=== PATIENT | male | born 1950 | race Caucasian/White ===

== ENCOUNTER 2019-02-02 08:04 | Day surgery (SDC) | payer BC ==
[~2019-02-02] VITALS: Ht 190.5 cm; Wt 105.0 kg
[~2019-02-02 08:04] MED LIST: BENA20 PO; IBUP600 PO; Levothyroxine200 MCG PO; Pravachol40 MG PO; Sudogest30 MG PO; TIZANIDINE HCL2 MG PO
== END 2019-02-02 09:28 | disposition home or self-care (01) ==
LOC: MHTC 08:04
DX: R55 Syncope and collapse (principal); I10 Essential (primary) hypertension; E78.5 Hyperlipidemia, unspecified; E03.9 Hypothyroidism, unspecified; R94.39 Abnormal result of other cardiovascular function study; Z79.899 Other long term (current) drug therapy; Z87.891 Personal history of nicotine dependence
CPT/HCPCS: 33285; C1764

== ENCOUNTER 2020-12-04 06:39 | Day surgery (SDC) | payer BC ==
[~2020-12-04] VITALS: Ht 190.5 cm; Wt 116.6 kg
[~2020-12-04 06:39] MED LIST changes: +Aspir 8181 MG PO; +FLUT.05NI; +MAGNESIUM OXID500 MG PO
[2020-12-04] MEDS ORDERED: PROSTATE HEALTH PO (07:43)
--- NOTE | 2020-12-04 10:46 | NUR ---
PT BROUGHT BACK TO RECOVERY ROOM IN RECLINER, REPORTS NOT FEELING WELL, NAUSEATED, PROVIDER CALLED, ORDER FOR ZOFRAN 4 MG IVP, NEOSYNEPHRINE 200 MG IVP, 1 LITER NORMAL SALINE. PT RECLINED WITH FEET ELEVATED, COLD RAG PLACED ON FOREHEAD. DR. AGRAWAL PRESENT TO BEDSIDE WITH US FOR FAST SCAN OF HEART. PT REPORTS FEELING BETTER AFTER RECIEVING MEDICATIONS. PRESENT AT BEDSIDE. DENIES PAIN. PLACED ON O2 AT 4L/NC SPO2 AT 94% BP 120/65 HR 60. REPORTS THAT NAUSEA HAS SUBSIDED. CALL LIGHT IN REACH. WILL CONTINUE TO MONITOR.
--- NOTE | 2020-12-04 11:00 | NUR ---
PROVIDER AT BEDSIDE TO DISCUSS PROCEDURE WITH PT AND FAMILY. VERBALIZED UNDERSTANDING. PHYSCIAL EVALUATION COMPLETED BY .
--- NOTE | 2020-12-04 11:39 | NUR ---
LIMITED ECHO BEING DONE AT BEDSIDE
--- NOTE | 2020-12-04 11:53 | NUR ---
ANCEF 2 GRAMS INFUSING PER MD ORDERS. PT RECLINING IN CHAIR. ATE 100 % OF MEAL TRAY. REMAINS PRESENT AT BEDSIDE. CALL LIGHT IN REACH. VSS.
--- NOTE | 2020-12-04 14:09 | NUR ---
PT PROVIDED WITH LUNCH TRAY, TOLERATES PO FLUIDS WITH NO DIFFICULTIES. REMAINS PRESENT IN ROOM. LEFT SIDE CHEST DRESSING REMAINS INTACT. PT DENIES PAIN OR SOB. PREVIOUSLY HAD CHEST XR AT BEDSIDE. ALSO PREVIOUSLY IN ROOM FOR FURTHER EVAL. NO ACUTE DISTRESS NOTED AT THIS TIME. PENDING ADMISSION TO PCU.
--- NOTE | 2020-12-04 14:43 | NUR ---
PT TRANSFERED TO PCU VIA W/C, ALL PERSONAL BELONGINGS SENT TO ROOM WITH PATIENT. NO ACUTE DISTRESS NOTED AT TIME OF TRANSFER. STEADY GAIT.
--- NOTE | 2020-12-04 15:40 | NUR ---
PT ARRIVED IN THE UNIT VIA WHEELCHAIR FROM [facility] POST PACER PLACEMENT. PT WAS ABLE TO STAND TRANSFER TO PCU BED ASSISTED. VITALS HRR SR AT 70'S, BP SYSTOLIC 120'S, SATS ABOVE 95% ON RA, AFEBRILE. PT DENIES CHEST PAIN/PRESSURE, SOB/, BUT HAS SLOGHT DISCOMFORT IN THE PACER SITE 2/10 TYLENOL GIVEN AT THIS TIME AWAITING TO TAKE EFFECT. PACER SITE DRESSING INTACT HAS SMALL AMOUNT OF BLOOD IN THE DRESSING NO REDNESS OR S/S OF INFECTION AROUND THE SITE, LEFT SLING APPLIED FOR IMMOBILIZATION PT IS EDUCATED ABOUT IMPORTANCE OF IMMOBILIZING LEFT ARM, PT VERBALIZED UNDERSTANDING. NO OTHER ISSUES AT THIS TIME, PT IS A SBA FOR TOILETING. ABLE TO MAKE NEEDS KNOWN, CALL LIGHTS IN REACH WILL MONITOR UNTIL END OF SHIFT
--- NOTE | 2020-12-05 04:15 | NUR ---
SHIFT SUMMARY PATIENT IS ALERT AND ORIENTED X4. COOPERATIVE WITH CARE. INDEPENDENT IN ROOM. SLING IN PLACE. PATIENT DOES NEED CONSTANT REMINDERS TO NOT USE LEFT ARM AND TENDS TO PUSH THE SLING OUT OF THE WAY. SURGICAL DRESSING HAS SMALL AMOUNT OF BLOOD, UNCHANGED ALL SHIFT. 02 SATS >90% ON RA. VSS, NO ACUTE CHANGES. CALL LIGHT IN REACH.
[2020-12-05 04:34] LABS: BASOPHILS ABSOLUTE AUTO 0.03 K/mm3 (0.00-0.23); BASOPHILS PERCENT AUTO 0 % (0-2); EOSINOPHILS ABSOLUTE AUTO 0.16 K/mm3 (0.00-0.68); EOSINOPHILS PERCENT AUTO 2 % (0-6); Hematocrit 44.3 % (37.0-53.0); Hemoglobin 14.8 g/dL (13.5-17.5); IMMATURE GRAN ABSOLUTE AUTO 0.02 K/mm3 (0.00-0.10); IMMATURE GRAN PERCENT AUTO 0 % (0-1); LYMPHOCYTES ABSOLUTE AUTO 1.15 K/mm3 (0.84-5.20); LYMPHOCYTES PERCENT AUTO 15 % (21-46); MONOCYTES ABSOLUTE AUTO 0.65 K/mm3 (0.16-1.47); MONOCYTES PERCENT AUTO 8 % (4-13); Mean Corpuscular HGB 31.4 pg (26.0-34.0); Mean Corpuscular HGB Conc 33.4 g/dL (31.5-36.5); Mean Corpuscular Volume 94 fL (80-100); Mean Platelet Volume 10.9 fL (9.1-12.4); NEUTROPHILS ABSOLUTE AUTO 5.71 K/mm3 (1.96-9.15); NEUTROPHILS PERCENT AUTO 74 % (41-73); Platelet Count 213 K/mm3 (150-400); RDW Coefficient Variation 12.9 % (11.7-14.2); Red Blood Cell Count 4.71 M/mm3 (4.30-5.90); White Blood Cell Count 7.72 K/mm3 (4.00-11.30)
[2020-12-05 04:52] LABS: Anion Gap 5 mmol/L (6-16); Blood Urea Nitrogen 17 mg/dL (8-24); Bun/Creatinine Ratio 18.1 (12.0-20.0); CO2, Blood 26 mmol/L (21-32); Calcium, Blood 8.7 mg/dL (8.5-10.1); Chloride, Blood 110 mmol/L (98-108); Creatinine, Blood 0.94 mg/dL (0.60-1.20); Glomerular Filtration Rate >60 (60-); Glucose, Blood 96 mg/dL (70-99); Sodium, Blood 141 mmol/L (136-145)
[2020-12-05] MEDS ORDERED: BENA20 PO (09:37)
[2020-12-05] MEDS ORDERED: EUTHYROX100 MC1 PO (09:38)
[2020-12-05] MEDS ORDERED: TAMS.4ER PO (09:40)
[2020-12-05] MEDS ORDERED: CEPH500 PO (09:41)
--- NOTE | 2020-12-05 10:12 | NUR ---
PATIENT IS ALERT AND ORIENTED, INDEPENDENT IN ROOM. DENIES CHEST PAIN THIS SHIFT, L. ARM SLING IN PLACE. PATIENT PROVIDED DISCHARGE INFO REGARDING FOLLOW UP PLANS, REASONS TO RETURN TO THE HOSPITAL, MEDICATION INFORMATION, AND PACEMAKER SITE CARE. PATIENT VERBALIZED UNDERSTANDING, NO SIGNS OF ACUTE DISTRESS.
== END 2020-12-05 10:33 | disposition home or self-care (01) ==
LOC: MHTC 06:39 → PCU 14:36 → MHTC 12-05 10:33
PROVIDERS: Internal Medicine Cardiovascular Disease
DX: I49.5 Sick sinus syndrome (principal); I48.0 Paroxysmal atrial fibrillation; I10 Essential (primary) hypertension; E03.9 Hypothyroidism, unspecified; G47.10 Hypersomnia, unspecified; E78.5 Hyperlipidemia, unspecified
CPT/HCPCS: 33208; 36415; 71045; 76937; 80048; 85025; 93005; 93010; 93308; 93321; 99152; 99153; A9270; C1769; C1785; C1894; C1898; J0690; J1644; J2250; J2370; J2405; J3010; J7030; J7040; Q9967

== ENCOUNTER 2021-01-27 18:14 | Emergency (ER) | payer BC ==
[~2021-01-27] VITALS: Ht 177.8 cm; Wt 77.1 kg
[~2021-01-27 18:14] MED LIST changes: +CEPH500 PO; +EUTHYROX100 MC1 PO; +PROSTATE HEALTH PO; +TAMS.4ER PO
[2021-01-28 00:17] LABS: BASOPHILS ABSOLUTE AUTO 0.03 K/mm3 (0.00-0.23); BASOPHILS PERCENT AUTO 0 % (0-2); EOSINOPHILS PERCENT AUTO 0 % (0-6); Hematocrit 48.5 % (37.0-53.0); Hemoglobin 16.6 g/dL (13.5-17.5); IMMATURE GRAN ABSOLUTE AUTO 0.04 K/mm3 (0.00-0.10); IMMATURE GRAN PERCENT AUTO 0 % (0-1); LYMPHOCYTES ABSOLUTE AUTO 0.83 K/mm3 (0.84-5.20); LYMPHOCYTES PERCENT AUTO 6 % (21-46); MONOCYTES ABSOLUTE AUTO 0.91 K/mm3 (0.16-1.47); MONOCYTES PERCENT AUTO 6 % (4-13); Mean Corpuscular HGB 30.6 pg (26.0-34.0); Mean Corpuscular HGB Conc 34.2 g/dL (31.5-36.5); Mean Corpuscular Volume 90 fL (80-100); Mean Platelet Volume 10.9 fL (9.1-12.4); NEUTROPHILS ABSOLUTE AUTO 12.98 K/mm3 (1.96-9.15); NEUTROPHILS PERCENT AUTO 88 % (41-73); Platelet Count 274 K/mm3 (150-400); RDW Coefficient Variation 12.8 % (11.7-14.2); RDW Standard Deviation 42.3 fL (35.1-46.3); Red Blood Cell Count 5.42 M/mm3 (4.30-5.90); White Blood Cell Count 14.79 K/mm3 (4.00-11.30)
[2021-01-28 00:34] LABS: Source, Urine Clean Catch
[2021-01-28 00:36] LABS: Alanine Aminotransfer (ALT/SGP 43 U/L (12-78); Albumin, Blood 4.2 g/dL (3.4-5.0); Albumin/Globulin Ratio 1.1 (0.8-1.8); Alk Phos 59 U/L (50-136); Anion Gap 9 mmol/L (6-16); Aspartate Aminotrans (AST/SGOT 21 U/L (12-37); Bilirubin, Total 0.9 mg/dL (0.1-1.0); Blood Urea Nitrogen 26 mg/dL (8-24); Bun/Creatinine Ratio 26.9 (12.0-20.0); CO2, Blood 21 mmol/L (21-32); Calcium, Blood 9.8 mg/dL (8.5-10.1); Chloride, Blood 106 mmol/L (98-108); Creatinine, Blood 0.97 mg/dL (0.60-1.20); Globulin, Blood 3.9 g/dL (2.2-4.0); Glomerular Filtration Rate >60 (60-); Glucose, Blood 129 mg/dL (70-99); Potassium, Blood 3.5 mmol/L (3.5-5.5); Sodium, Blood 136 mmol/L (136-145); Total Protein, Blood 8.1 g/dL (6.4-8.2); Troponin I <0.015 ng/mL (0.000-0.040)
[2021-01-28 00:39] LABS: Bilirubin, Urine Neg (Neg); Blood, Urine 1+ (Neg); Glucose Qualitative, Urine Neg (Neg); Ketones, Urine 4+ (Neg); Leukocyte Esterase, Urine 1+ (Neg); Nitrite, Urine Neg (Neg); Protein, Urine 2+ (Neg); Specific Gravity, Urine 1.025 (1.003-1.022); Urobilinogen, Urine NORM (Normal)
[2021-01-28 00:47] LABS: Appearance, Urine Clear (Clear); Color, Urine Yellow (P-Yellow)
[2021-01-28 01:12] LABS: Amorphous Light (0-Heavy); Bacteria Few /hpf; Mucus Light (0-Heavy); Red Blood Cells, Urine 0-2 /hpf (0-2); Squamous Epithelial Cells Rare /hpf (Few)
== END 2021-01-28 01:45 | disposition home or self-care (01) ==
LOC: ER 18:14
PROVIDERS: Emergency Medicine
DX: R10.9 Unspecified abdominal pain (principal); R51.9 Headache, unspecified; Z79.899 Other long term (current) drug therapy
CPT/HCPCS: 70450; 71046; 74177; 80053; 81001; 84484; 85025; 87086; 93005; 93010; 96374; 99284-25; A9270; J1170; J2405; Q9967

== ENCOUNTER 2021-02-02 11:39 | Inpatient (IN) | payer BC, MEDICARE ==
[~2021-02-02] VITALS: Ht 188 cm; Wt 109.3 kg
[2021-02-02 12:26] LABS: BASOPHILS ABSOLUTE AUTO 0.06 K/mm3 (0.00-0.23); BASOPHILS PERCENT AUTO 0 % (0-2); EOSINOPHILS ABSOLUTE AUTO 0.03 K/mm3 (0.00-0.68); EOSINOPHILS PERCENT AUTO 0 % (0-6); Hematocrit 54.5 % (37.0-53.0); Hemoglobin 20.2 g/dL (13.5-17.5); IMMATURE GRAN ABSOLUTE AUTO 0.14 K/mm3 (0.00-0.10); IMMATURE GRAN PERCENT AUTO 1 % (0-1); LYMPHOCYTES ABSOLUTE AUTO 1.01 K/mm3 (0.84-5.20); LYMPHOCYTES PERCENT AUTO 7 % (21-46); MONOCYTES ABSOLUTE AUTO 1.89 K/mm3 (0.16-1.47); MONOCYTES PERCENT AUTO 12 % (4-13); Mean Corpuscular HGB 31.1 pg (26.0-34.0); Mean Corpuscular HGB Conc 37.1 g/dL (31.5-36.5); Mean Corpuscular Volume 84 fL (80-100); Mean Platelet Volume 10.6 fL (9.1-12.4); NEUTROPHILS ABSOLUTE AUTO 12.29 K/mm3 (1.96-9.15); NEUTROPHILS PERCENT AUTO 80 % (41-73); Platelet Count 347 K/mm3 (150-400); RDW Coefficient Variation 12.2 % (11.7-14.2); RDW Standard Deviation 36.5 fL (35.1-46.3); White Blood Cell Count 15.42 K/mm3 (4.00-11.30)
[2021-02-02 12:46] LABS: Alanine Aminotransfer (ALT/SGP 102 U/L (12-78); Albumin, Blood 3.5 g/dL (3.4-5.0); Albumin/Globulin Ratio 0.8 (0.8-1.8); Alk Phos 80 U/L (50-136); Anion Gap 10 mmol/L (6-16); Aspartate Aminotrans (AST/SGOT 39 U/L (12-37); Bilirubin, Total 1.5 mg/dL (0.1-1.0); Blood Urea Nitrogen 25 mg/dL (8-24); Bun/Creatinine Ratio 30.1 (12.0-20.0); CO2, Blood 21 mmol/L (21-32); Calcium, Blood 8.9 mg/dL (8.5-10.1); Chloride, Blood 91 mmol/L (98-108); Creatinine, Blood 0.83 mg/dL (0.60-1.20); Globulin, Blood 4.2 g/dL (2.2-4.0); Glomerular Filtration Rate >60 (60-); Glucose, Blood 123 mg/dL (70-99); Potassium, Blood 3.4 mmol/L (3.5-5.5); Sodium, Blood 122 mmol/L (136-145); Total Protein, Blood 7.7 g/dL (6.4-8.2)
[2021-02-02] MEDS ORDERED: TRAM50 PO (14:57)
[2021-02-02] MEDS ORDERED: Percocet 5-3251 EACH PO (14:58)
[2021-02-02] MEDS ORDERED: ONDA4ODT PO (14:58)
[2021-02-02 15:03] LABS: Glucose, CSF 64 mg/dL (40-70)
[2021-02-02 15:15] LABS: Appearance, CSF Clear (Clear); Color, CSF No Color (No Color); RBC Count, CSF 6 /mm3 (0-0); WBC Count, CSF 3 /mm3 (0-5)
[2021-02-02 15:22] LABS: Appearance, CSF Clear (Clear); Color, CSF No Color (No Color); RBC Count, CSF 0 /mm3 (0-0); WBC Count, CSF 0 /mm3 (0-5)
[2021-02-02 17:44] LABS: Cryptococcus Neoformans/Gattii Not Detected (NOT DETECT); Enterovirus Not Detected (NOT DETECT); Escherichia Coli K1 Not Detected (NOT DETECT); Haemophilus Influenza Not Detected (NOT DETECT); Herpes Simplex Virus 1 Not Detected (NOT DETECT); Herpes Simplex Virus 2 Not Detected (NOT DETECT); Human Herpesvirus 6 Detected (NOT DETECT); Human Parechovirus Not Detected (NOT DETECT); Listeria Monocytogenes Not Detected (NOT DETECT); Neisseria Meningitidis Not Detected (NOT DETECT); Streptococcus Agalactiae Not Detected (NOT DETECT); Streptococcus Pneumoniae Not Detected (NOT DETECT); Varicella Zoster Virus Not Detected (NOT DETECT)
--- NOTE | 2021-02-02 19:30 | NUR ---
PT ARRIVES TO PCU VIA GURNEY FROM ER. DENIES N/V, DENIES CP/PRESSURE, DENIES SOB/DYSPNEA. PAIN TO HEAD AND NECK IS IMPROVED TO 3/10 POST DILAUDID ADMINISTRATION IN ER, PT STATES FURTHER IMPROVES WITH POSITION CHANGES. HE DOES ADMIT TO CONTINUED DOUBLE VISION FOR WHICH HE IS KEEPING HIS RIGHT EYE CLOSED. BANDAID IN PLACE TO SITE OF LUMBAR PUNCTURE IS CDI. PRESSURES ARE NOTED HYPERTENSIVE WILL REASSESS.
[2021-02-03 04:11] LABS: BASOPHILS ABSOLUTE AUTO 0.04 K/mm3 (0.00-0.23); BASOPHILS PERCENT AUTO 0 % (0-2); EOSINOPHILS ABSOLUTE AUTO 0.04 K/mm3 (0.00-0.68); EOSINOPHILS PERCENT AUTO 0 % (0-6); Hematocrit 52.3 % (37.0-53.0); Hemoglobin 19.2 g/dL (13.5-17.5); IMMATURE GRAN ABSOLUTE AUTO 0.12 K/mm3 (0.00-0.10); IMMATURE GRAN PERCENT AUTO 1 % (0-1); LYMPHOCYTES ABSOLUTE AUTO 0.81 K/mm3 (0.84-5.20); LYMPHOCYTES PERCENT AUTO 6 % (21-46); MONOCYTES ABSOLUTE AUTO 1.74 K/mm3 (0.16-1.47); MONOCYTES PERCENT AUTO 12 % (4-13); Mean Corpuscular HGB 31.5 pg (26.0-34.0); Mean Corpuscular HGB Conc 36.7 g/dL (31.5-36.5); Mean Corpuscular Volume 86 fL (80-100); NEUTROPHILS ABSOLUTE AUTO 12.06 K/mm3 (1.96-9.15); NEUTROPHILS PERCENT AUTO 81 % (41-73); Platelet Count 310 K/mm3 (150-400); RDW Coefficient Variation 12.7 % (11.7-14.2); RDW Standard Deviation 38.9 fL (35.1-46.3); Red Blood Cell Count 6.09 M/mm3 (4.30-5.90); White Blood Cell Count 14.81 K/mm3 (4.00-11.30)
[2021-02-03 04:35] LABS: Alanine Aminotransfer (ALT/SGP 95 U/L (12-78); Albumin, Blood 3.2 g/dL (3.4-5.0); Albumin/Globulin Ratio 0.9 (0.8-1.8); Alk Phos 77 U/L (50-136); Anion Gap 8 mmol/L (6-16); Aspartate Aminotrans (AST/SGOT 29 U/L (12-37); Bilirubin, Total 1.1 mg/dL (0.1-1.0); Blood Urea Nitrogen 19 mg/dL (8-24); Bun/Creatinine Ratio 30.5 (12.0-20.0); CO2, Blood 24 mmol/L (21-32); Calcium, Blood 8.4 mg/dL (8.5-10.1); Chloride, Blood 92 mmol/L (98-108); Creatinine, Blood 0.62 mg/dL (0.60-1.20); Globulin, Blood 3.7 g/dL (2.2-4.0); Glomerular Filtration Rate >60 (60-); Glucose, Blood 107 mg/dL (70-99); Potassium, Blood 3.2 mmol/L (3.5-5.5); Sodium, Blood 124 mmol/L (136-145); Total Protein, Blood 6.9 g/dL (6.4-8.2)
--- NOTE | 2021-02-03 05:43 | NUR ---
PT STATES THAT DOUBLE VISION CONTINUES WELL SOME SMALL AMOUNT OF DIZZINESS THAT IS REPORTED WHEN PT GETS UP TO COMMODE THIS AM. PAIN IS CONTROLLED WITH DILAUDID IV PER ORDERS. BP REMAINS HYPERTENSIVE, HYDRALAZINE ADMINSITERED X 2 DOSES AND LABETOLOL ADMINISTERED X 1, HYDRALAZINE DOSE WAS NOTED MOST EFFECTIVE IN IMPROVING BP. OTHERWISE NO ACUTE CHANGES THIS SHIFT.
--- NOTE | 2021-02-03 07:31 | NUR ---
INITIAL ASSESSMENT: PATIENT IS RESTING WITH EYES CLOSED RESP E/U. PATIENT AWAKENS EASILY WITH VERBAL STIMULI, PATIENT IS [place] HIS EARS ARE "PLUGGED UP." PATIENT REPORTS PAIN 7/10 IN NECK, PAIN EXACERBATES WITH MOVING HEAD FROM SIDE TO SIDE. PATIENT IS ONLY OPENING LEFT EYE, STATES HE IS STIL HAVING DOUBLE VISION AND IT IS EASIER TO FOCUS WITH ONE EYE CLOSED. HRR, SR PER TELEMETRY. LS CTA, BIOX WNL ON RA CONTINOUS BIOX ON. BT+. PPP NO EDEMA PRESENT. VSS, BLOOD PRESSURE IS A LITTLE BETTER THAN IT WAS THE PREVIOUS SHIFT. IV POTASSIUM HUNG FOR REPLACEMENT, PATIENT DENIES OTHER NEEDS AT THIS TIME. CALL LIGHT IN REACH, WILL CONTINUE TO MONITOR.
--- NOTE | 2021-02-03 11:30 | NUR ---
DR. DE WAS HERE TO SEE THE PATIENT. I DISCUSSED WITH HIM THE PATIENT HAS BEEN HAVING SOME URINARY RETENTION, I DID A BLADDER SCAN AT 10 AM AFTER THE PATIENT VOIDED THE PVR WAS 491, AT THAT TIME PATIENT STATED HE WANTED TO TRY AND STAND FOR THE NEXT VOID TO SEE IF HE WOULD HAVE MORE SUCCESS AND FULLY EMPTY HIS BLADDER. THE PATIENT STOOD TO VOID PVR STILL 374CC, NOTIFIED ORDER FOR FONSECA. BLOOD PRESSURE IS HIGH 184/91, PATIENT IS ALSO C/O [AIN 03/08 IN HEAD, OXYCODONE GIVEN WILL REASSESS BLOOD PRESSURE AND GIVE PRN MEDS IF NECESSARY.
[2021-02-03 13:07] LABS: Source, Urine Catheter
[2021-02-03 14:09] LABS: Bilirubin, Urine Neg (Neg); Blood, Urine 4+ (Neg); Glucose Qualitative, Urine 1+ (Neg); Ketones, Urine 1+ (Neg); Leukocyte Esterase, Urine Neg (Neg); Nitrite, Urine Neg (Neg); Protein, Urine 3+ (Neg); Specific Gravity, Urine 1.015 (1.003-1.022); Urobilinogen, Urine NORM (Normal)
[2021-02-03 14:12] LABS: Appearance, Urine Hazy (Clear); Color, Urine Yellow (P-Yellow)
[2021-02-03 14:14] LABS: Bacteria Mod /hpf; Squamous Epithelial Cells Rare /hpf (Few); White Blood Cells, Urine 0-2 /hpf (0-5)
--- NOTE | 2021-02-03 16:30 | NUR ---
ASSESSMENT UNCHANGE. BLOOD PRESSURE STILL HIGH, PT STATES HIS PAIN IS STILL 7/10 IN HIS HEAD AND NECK, 1MG DIALUDID GIVEN. WILL REASSESS BLOOD PRESSURE. PT DENIES OTHER NEEDS AT THIS TIME, CALL LIGHT IN REACH. AT BEDSIDE. WILL CONTINUE TO MONITOR.
--- NOTE | 2021-02-03 18:21 | NUR ---
PT HAS HAD A DIFFICULT DAY. HE IS STILL EXPERIENCING DOUBLE VISION. HE HAS BEEN HYPERTENSIVE THROUGH OUT THE SHIFT, I GAVE LABETALOL AND HYDRALAZINE. HIS BLOOD PRESSURE IMPROVE WITH THE PRN MEDS AND PAIN MEDICATIONS, PT AND STATE HIS BLOOD PRESSURE IS NOT THIS HIGH AT HOME. THIS EVENING AFTER PAIN MEDICINE WAS ADMINISTERED PATIENT BEGAN TO MILDLY HALLUCINATE, MD NOTIFIED. NO OTHER ACUTE CHANGES AT THIS TIME. WILL REPORT TO ONCOMING RN.
--- NOTE | 2021-02-03 20:45 | NUR ---
ASSUMPTION OF CARE PT SLEEPING IN BED, EASILY AROUSES TO VERBAL STIMULI. PT IS [place], STATES "EARS ARE PLUGGED". COMPLAINING OF 7/10 NECK PAIN, PO AND IV PAIN MEDS ORDERED, WILL CONTINUE TO MONITOR. PT ABLE TO REPOSITION SELF IN BED, DOES SO FREQUENTLY. ONLY OPENING L EYE DUE TO DOUBLE VISION. PT ALERT AND MOSTLY ORIENTED, CONFUSED ABOUT TIME OF DAY, THOUGHT IT WAS MORNING INSTEAD OF EVENING. HR SR WITH PVCS ON MONITOR, BP 185/97. PRN HYDRALAZINE GIVEN. PT DENIES ANY NEEDS AT THIS TIME.
[2021-02-04 03:42] LABS: BASOPHILS ABSOLUTE AUTO 0.02 K/mm3 (0.00-0.23); BASOPHILS PERCENT AUTO 0 % (0-2); EOSINOPHILS ABSOLUTE AUTO 0.02 K/mm3 (0.00-0.68); EOSINOPHILS PERCENT AUTO 0 % (0-6); Hematocrit 49.1 % (37.0-53.0); Hemoglobin 17.7 g/dL (13.5-17.5); IMMATURE GRAN ABSOLUTE AUTO 0.07 K/mm3 (0.00-0.10); IMMATURE GRAN PERCENT AUTO 1 % (0-1); LYMPHOCYTES PERCENT AUTO 5 % (21-46); MONOCYTES ABSOLUTE AUTO 1.65 K/mm3 (0.16-1.47); MONOCYTES PERCENT AUTO 12 % (4-13); Mean Corpuscular HGB 31.2 pg (26.0-34.0); Mean Corpuscular Volume 86 fL (80-100); Mean Platelet Volume 10.9 fL (9.1-12.4); NEUTROPHILS ABSOLUTE AUTO 11.08 K/mm3 (1.96-9.15); NEUTROPHILS PERCENT AUTO 82 % (41-73); Platelet Count 282 K/mm3 (150-400); RDW Coefficient Variation 12.9 % (11.7-14.2); RDW Standard Deviation 39.8 fL (35.1-46.3); Red Blood Cell Count 5.68 M/mm3 (4.30-5.90); White Blood Cell Count 13.54 K/mm3 (4.00-11.30)
[2021-02-04 04:00] LABS: Anion Gap 7 mmol/L (6-16); Blood Urea Nitrogen 19 mg/dL (8-24); Bun/Creatinine Ratio 20.4 (12.0-20.0); CO2, Blood 24 mmol/L (21-32); Calcium, Blood 8.5 mg/dL (8.5-10.1); Chloride, Blood 92 mmol/L (98-108); Creatinine, Blood 0.93 mg/dL (0.60-1.20); Glomerular Filtration Rate >60 (60-); Glucose, Blood 116 mg/dL (70-99); Potassium, Blood 3.5 mmol/L (3.5-5.5); Sodium, Blood 123 mmol/L (136-145)
--- NOTE | 2021-02-04 05:26 | NUR ---
SHIFT SUMMARY PT REMAINS ALERT AND MOSTLY ORIENTED, AWAKENS DISORIENTED TO TIME OF DAY BUT EASILY REORIENTED. PT COMPLAINING OF 7/10 NECK AND BACK PAIN THROUGHOUT SHIFT, PRN PO AND IV PAIN MEDS GIVEN PER EMAR. VSS, PRN HYDRALAZINE GIVEN ONCE THIS SHIFT FOR SBP >160. SPO2 >92% ON RA. LUNGS CLEAR/DIMINISHED BASED THIS SHIFT. DECLINED STOOL SOFTENERS THIS SHIFT. FONSECA PATENT DRAINING DARK YELLOW URINE TO GRAVITY. IV CURRENTLY SALINE LOCKED.
--- NOTE | 2021-02-04 07:40 | NUR ---
INITIAL ASSESSMENT: PATIENT IS RESTING COMFORTABLY IN BED WITH EYES CLOSED, RESP E/U. PT EASILY AWAKENS WITH ASSESSMENT. PT REPORTS HIS PAIN IN HIS HEAD/NECK IS STILL 7/10, HE IS ALSO HAVING PAIN BETWEEN HIS SHOULDER BLADES THAT HE RATES AT AN 5-6/10. PT STATES HE CONTINUES TO HAVE DOUBLE VISION AND IS SLIGHTLY DIZZY. HE OPENS HIS LEFT EYE TO FOCUS BETTER. CONTINUES TO BE NOOKSACK. HE REPORTS NUMBESS AND TINGLING ON THE BACK OF HIS HEAD AT THE BASE OF HIS NECK, HE STATES THIS HAS BEEN PRESENT FOR A COUPLE OF DAYS. HE ALSO STATES HE IS HALLUCINATING, HE STATES HE HAS BEEN HALLUCINATING FOR THE LAST COUPLE OF DAYS AND IT IS SIGNIFICANLY WORSE TODAY. HE STATES, "I AM HAVING A HARD TIME KNOWING WHATS REAL AND WHATS NOT." PATIENTS HRR. LS CTA, BIOX WNL ON RA. BT+ .PPP. FOOT BOARD REMOVED FROM BED TO ALLOW PATIENT TO STRETCH OUT. VSS. PT DENIES OTHER NEEDS AT THIS TIME. SENIOR MICROSTRATEGY DEVELOPER GAVE AN UPDATE AND TOOK HER PHONE NUMBER SO THE MD CAN PROVIDE AN UPDATE. PATIENT DENIES OTHER NEEDS AT THIS TIME. CALL LIGHT IN REACH, WILL CONTINUE TO MONITOR.
--- NOTE | 2021-02-04 12:38 | NUR ---
DR. DE HAS BEEN BY TO SEE THE PATIENT, HE HAS BEEN UPDATED TO THE PATIENTS WORSENING HALLUCINATIONS. SEE NEW ORDERS. PATIENT WENT TO HAVE CT W/O CONTRAST, RESULTS NORMAL. VSS. GIVEN UPDATE. PATIENT IS RESTING WITH HIS EYES CLOSED ON HIS LEFT SIDE. CALL LIGHT IN REACH, WILL CONTINUE TO MONITOR.
--- NOTE | 2021-02-04 16:30 | NUR ---
I SPOKE WITH DR. DE TODAY ABOUT SOME OF THE CONCERNS AND REQUESTS THE HAD. SHE WAS ASKING FOR A NEUROLOGY CONSULT AND AN INFECTIOUS DISEASE CONSULT, SEE NEW ORDERS. DR DE HAS ALSO CALLED OTHER FACILITIES FOR [place]. THE TRANSFER CENTERS FROM FACILITIES HAVE NOT RETURNED HIS CALLS. VSS. SON AT BEDSIDE. PT IS MORE ALERT AND COVERSING WITH SON. VSS. BLOOD PRESSURE MUCH BETTER, SEE FLOW SHEET. PT STILL CONTINUES TO HALLUCINATE AND HAVE DOUBLE VISION. Q4 NEURO CHECKS ORDERED AND WE WILL KEEP THE PATIENT IN PCU. CALL LIGHT IN REACH. WILL CONTINUE TO MONITOR.
--- NOTE | 2021-02-04 18:45 | NUR ---
THE PATIENT HAD AN INCREASE IN HALLUCINATIONS, IS STILL HAVING DOUBLE VISION AND SOME PAIN IN HIS HEAD AND NECK. I HAVE BEEN MEDICATING HIM WITH TYLENOL AND OXYCODONE AND THAT SEEMS TO BE MANAGING HIS PAIN WELL, ONE DOSE OF DILAUDID GIVEN AT THIS TIME. PT HAS BEEN RESTING MOST OF THE DAY. DR. DE HAS BEEN IN CLOSE CONTACT WITH THE PATIENTS . CONSULTS FOR INFECTIOUS DISEASE AND NEUROLOGY PLACED TODAY, BOTH HAVE BEEN CALLED TO THE PROVIDER. I WILL GIVE REPORT TO ONCOMING RN.
--- NOTE | 2021-02-04 20:51 | NUR ---
CHELLY SPAULDING TO ROOM AROUND 2019. NEURO EXAM COMPLETED. DR SPAULDING WORRIED ABOUT PT'S NEURO STATUS. STATES PT'S POSSIBLE NEED FOR ICP MONITORING AND TRANSFER TO HIGHER LEVEL OF CARE FACILITY. 2051- DR SPAULDING SPEAKING WITH DR MARISCAL NOW REGARDING TRANSFER POSSIBILITIES AND CONTINUED CARE. PT IS AXO CURRENTLY, SPEAKING WITH . UPDATED BY CHELLY. AWAITING FINAL DECISION.
--- NOTE | 2021-02-04 22:49 | NUR ---
PROVIDER DR MARISCAL TO ROOM. TUTU PT. ATTEMPTING TO GAIN AN ACCEPTING FACILITY FOR PT NOW.
--- NOTE | 2021-02-04 23:35 | NUR ---
PROVIDER DAVEY SPOKE WITH [facility] NEURO TEAM. DUE TO THE HEAD CT NOT SHOWING SWELLING OR ANY OTHER WORRYING FINDINGS. FACILITY NOT GOING TO ACCEPT AT THIS TIME. NO NEW ORDERS AT THIS TIME FROM DAVEY. STATES TO CALL HIM WITH ANY WORSENING OF SX'S.
[2021-02-05 03:50] LABS: BASOPHILS ABSOLUTE AUTO 0.02 K/mm3 (0.00-0.23); BASOPHILS PERCENT AUTO 0 % (0-2); EOSINOPHILS ABSOLUTE AUTO 0.03 K/mm3 (0.00-0.68); EOSINOPHILS PERCENT AUTO 0 % (0-6); Hematocrit 48.4 % (37.0-53.0); Hemoglobin 17.4 g/dL (13.5-17.5); IMMATURE GRAN ABSOLUTE AUTO 0.06 K/mm3 (0.00-0.10); IMMATURE GRAN PERCENT AUTO 1 % (0-1); LYMPHOCYTES ABSOLUTE AUTO 0.66 K/mm3 (0.84-5.20); LYMPHOCYTES PERCENT AUTO 6 % (21-46); MONOCYTES ABSOLUTE AUTO 1.37 K/mm3 (0.16-1.47); MONOCYTES PERCENT AUTO 12 % (4-13); Mean Corpuscular HGB 30.9 pg (26.0-34.0); Mean Corpuscular Volume 86 fL (80-100); Mean Platelet Volume 10.5 fL (9.1-12.4); NEUTROPHILS ABSOLUTE AUTO 9.27 K/mm3 (1.96-9.15); NEUTROPHILS PERCENT AUTO 81 % (41-73); Platelet Count 249 K/mm3 (150-400); RDW Standard Deviation 40.1 fL (35.1-46.3); Red Blood Cell Count 5.63 M/mm3 (4.30-5.90); White Blood Cell Count 11.41 K/mm3 (4.00-11.30)
[2021-02-05 04:10] LABS: Bun/Creatinine Ratio 15.7 (12.0-20.0); Calcium, Blood 8.7 mg/dL (8.5-10.1); Creatinine, Blood 1.4 mg/dL (0.60-1.20)
--- NOTE | 2021-02-05 05:02 | NUR ---
SHIFT SUMMARY AOX4, PT C/O HALLUCINATIONS T/O NIGHT MAKING IT DIFFICULT TO SLEEP. ORDER FROM DR FITZPATRICK TO MAINTAIN SBP UNDER 160. SBP MAINTAINED BELOW 160 T/O SHIFT W/O INTERVENTION. PT ON TELE, SINUS 70'S-80'S. C/O NECK PAIN THAT IS CONSTANT T/O NIGHT. TREATED WITH ORDERED TYLENOL, OXYCODONE, AND DILAUDID WITH SOME RELIEF. O2 SATS DOWN TO 87-88% ON RA FOLLOWING DOSE OF DILAUDID, PLACED ON 1 L 02 VIA NC. NEURO CHECKS UNCHANGED FROM INITIAL ASSESSMENT. PENDING TRANSFER TO NEURO CARE. IV IN R AC SALINE LOCKED.
--- NOTE | 2021-02-05 08:00 | NUR ---
pt laying in bed on his back, a/ox3, but is slow to respond, his smile is symetrical, right twister doffer is weaker than left, has gross motor movement, but fine movement is impaired, and hands seem to have some spastic movements, dpfe are equal, shabnam, swallows without diff, pt states he has double vision and can see better if he covers one eye, also reports hallucinating, like a movie is being played in front of him continually with eyes closed or open, feels better with sleep mask over eyes, complains of pain in the middle of neck and between shoulders, lungs are clear t/o, resp even and unlabored, no cough noted, hrr, tele in place running sr per monitor, see strip, no edema noted, ppp+2, cap refill<3sec, vs stable afebrile, iv site is clear and patent, btx4, abd flat soft nontender, voids without diff, skin c/w/d, maew, shabnam, call light in reach.
--- NOTE | 2021-02-05 15:15 | NUR ---
gave pt tylenol for pain, lidocain patches for neck and heat pad for low back, new iv placed to left ac, 20G x1 attempt. call light in reach, in room.
--- NOTE | 2021-02-05 15:49 | NUR ---
GAVE REPORT TO [place] NURSE KIP, PT LEFT VIA GURNEY FOR BEND, AND DAUGHTER AT BEDSIDE, NEW 20G IV PLACED TO LEFT FA BY HEAT TREATER HEAD, PT AND HAVE ALL BELONGINGS.
[2021-02-06 09:10] LABS: LYME IGG/IGM AB <0.91 ISR (0.00-0.90)
== END 2021-02-05 15:33 | disposition short-term general hospital (02) | DRG 98 ==
LOC: ER 11:39 → PCU 18:08
PROVIDERS: Emergency Medicine; Internal Medicine; Nurse Practitioner Acute Care; Physician Assistant; ADMIT Internal Medicine
PROC: 009U3ZX Drainage of Spinal Canal, Percutaneous Approach, Diagnostic (ICD-10-PCS; principal; 2021-02-02)
DX: B10.01 Human herpesvirus 6 encephalitis (principal); N17.9 Acute kidney failure, unspecified; E87.1 Hypo-osmolality and hyponatremia; I10 Essential (primary) hypertension; E87.6 Hypokalemia; N40.0 Benign prostatic hyperplasia without lower urinary tract symptoms; E78.5 Hyperlipidemia, unspecified; E03.9 Hypothyroidism, unspecified; L40.9 Psoriasis, unspecified; K21.9 Gastro-esophageal reflux disease without esophagitis; Z95.0 Presence of cardiac pacemaker; Z90.49 Acquired absence of other specified parts of digestive tract; Z98.890 Other specified postprocedural states; Z87.891 Personal history of nicotine dependence; Z79.899 Other long term (current) drug therapy
CPT/HCPCS: 36415; 51702; 62270; 70450; 80048; 80053; 81001; 82945; 84157; 84443; 85025; 85651; 86140; 86618; 87070; 87086; 87205; 87483; 89051; 93005; 93010; 96365-59; 96375-59; 99285-25; A9270; J0133; J0360; J1170; J1650; J1940; J3480; J7030; J7060

== ENCOUNTER 2022-07-22 06:06 | Emergency (ER) | payer BC ==
[~2022-07-22] VITALS: Ht 182.9 cm; Wt 108.9 kg
[~2022-07-22 06:06] MED LIST changes: +ONDA4ODT PO; +Percocet 5-3251 EACH PO; +TRAM50 PO
[2022-07-22 06:34] LABS: BASOPHILS ABSOLUTE AUTO 0.03 K/mm3 (0.00-0.23); BASOPHILS PERCENT AUTO 0 % (0-2); EOSINOPHILS PERCENT AUTO 0 % (0-6); Hematocrit 48.2 % (37.0-53.0); Hemoglobin 16.7 g/dL (13.5-17.5); IMMATURE GRAN ABSOLUTE AUTO 0.03 K/mm3 (0.00-0.10); IMMATURE GRAN PERCENT AUTO 0 % (0-1); LYMPHOCYTES ABSOLUTE AUTO 0.45 K/mm3 (0.84-5.20); LYMPHOCYTES PERCENT AUTO 6 % (21-46); MONOCYTES ABSOLUTE AUTO 0.93 K/mm3 (0.16-1.47); MONOCYTES PERCENT AUTO 13 % (4-13); Mean Corpuscular HGB 31.9 pg (26.0-34.0); Mean Corpuscular HGB Conc 34.6 g/dL (31.5-36.5); Mean Corpuscular Volume 92 fL (80-100); Mean Platelet Volume 10.4 fL (9.1-12.4); NEUTROPHILS ABSOLUTE AUTO 5.99 K/mm3 (1.96-9.15); NEUTROPHILS PERCENT AUTO 81 % (41-73); Platelet Count 184 K/mm3 (150-400); RDW Coefficient Variation 12.9 % (11.7-14.2); RDW Standard Deviation 43.7 fL (35.1-46.3); Red Blood Cell Count 5.24 M/mm3 (4.30-5.90); White Blood Cell Count 7.43 K/mm3 (4.00-11.30)
[2022-07-22 06:45] LABS: Alanine Aminotransfer (ALT/SGP 77 U/L (12-78); Albumin/Globulin Ratio 0.9 (0.8-1.8); Alk Phos 52 U/L (50-136); Anion Gap 9 mmol/L (6-16); Aspartate Aminotrans (AST/SGOT 71 U/L (12-37); Bilirubin, Total 0.6 mg/dL (0.1-1.0); Blood Urea Nitrogen 13 mg/dL (8-24); Bun/Creatinine Ratio 12.5 (12.0-20.0); CO2, Blood 18 mmol/L (21-32); Chloride, Blood 109 mmol/L (98-108); Creatinine, Blood 1.04 mg/dL (0.60-1.20); Ethanol (Alcohol), Blood, Med <3 mg/dL; Globulin, Blood 3.5 g/dL (2.2-4.0); Glomerular Filtration Rate 76 (60-); Glucose, Blood 144 mg/dL (70-99); Sodium, Blood 136 mmol/L (136-145); Total Protein, Blood 6.5 g/dL (6.4-8.2)
[2022-07-22] MEDS ORDERED: FINA5 PO (07:34)
[2022-07-22] MEDS ORDERED: ATOR10 PO (07:34)
[2022-07-22] MEDS ORDERED: ELIQUIS5 M3 PO (07:34)
[2022-07-22] MEDS ORDERED: ASPI81CH PO (07:35)
[2022-07-22 07:55] LABS: Source, Urine Clean Catch
[2022-07-22 08:00] LABS: Appearance, Urine Clear (Clear); Bilirubin, Urine Neg (Neg); Blood, Urine 3+ (Neg); Color, Urine Yellow (P-Yellow); Glucose Qualitative, Urine Neg (Neg); Ketones, Urine 3+ (Neg); Leukocyte Esterase, Urine Neg (Neg); Nitrite, Urine Neg (Neg); Protein, Urine 2+ (Neg); Specific Gravity, Urine 1.015 (1.003-1.022); Urobilinogen, Urine NORM (Normal)
[2022-07-22 08:07] LABS: Bacteria Rare /hpf; Squamous Epithelial Cells Rare /hpf (Few); White Blood Cells, Urine 0-2 /hpf (0-5)
[2022-07-22 08:28] LABS: U Amphetamine Screen Not Detected; U Barbituate Screen Not Detected; U Benzodiazapine Screen Not Detected; U Buprenorphine Screen Not Detected; U Cannabinoids Screen Not Detected; U Cocaine Screen Not Detected; U Methadone Screen Not Detected; U Methamphetamine Screen Not Detected; U Opiates Screen Not Detected; U Oxycodone Screen Not Detected; U Phencyclidine Screen Not Detected; U Propoxyphene Screen Not Detected
[2022-07-22 09:43] LABS: Influenza B, PCR NEGATIVE (NEGATIVE); Resp Syncytial Virus, PCR NEGATIVE (NEGATIVE); SARS-Cov-2 (COVID-19) PCR, MMC NEGATIVE (NEGATIVE)
[2022-07-22 09:45] LABS: Influenza A, PCR POSITIVE (NEGATIVE)
== END 2022-07-22 11:14 | disposition home or self-care (01) ==
LOC: ER 06:06
PROVIDERS: Emergency Medicine
DX: R55 Syncope and collapse (principal); R41.82 Altered mental status, unspecified; E86.1 Hypovolemia; J10.1 Influenza due to other identified influenza virus with other respiratory manifestations; I10 Essential (primary) hypertension; E03.9 Hypothyroidism, unspecified; Z95.0 Presence of cardiac pacemaker; Z79.899 Other long term (current) drug therapy; Z79.890 Hormone replacement therapy
CPT/HCPCS: 0241U; 70450; 80053; 81001; 83605; 83735; 84484; 85025; 93005; 93010; G0480; J2405; J7030

== ENCOUNTER 2025-05-25 12:11 | Emergency (ER) | payer BC ==
[~2025-05-25] VITALS: Ht 190.5 cm; Wt 119.3 kg
[~2025-05-25 12:11] MED LIST changes: +ASPI81CH PO; +ATOR10 PO; +ELIQUIS5 M3 PO; +FINA5 PO
[2025-05-25 12:25] VITALS: BP 134/99
[2025-05-25] MEDS ORDERED: COQ-10100 MG (12:40)
[2025-05-25] MEDS ORDERED: BENAZEPRIL HCL5 M2 PO (12:40)
[2025-05-25 13:37] LABS: Calcium, Ionized (POC) 1.18 mmol/L (1.10-1.46); Chloride (POC) 103 mmol/L (98-108); Creatinine (POC) 1.2 mg/dL (0.8-1.3); Glucose (ISTAT POC) 113 mg/dL (70-99); Hematocrit (POC) 50.0 % (41.0-53.0); Hemoglobin (POC) 17.0 g/dL (13.5-17.5); Potassium (POC) 3.5 mmol/L (3.5-5.5); Sodium (POC) 139 mmol/L (135-148); Total CO2 (POC) 23 mmol/L (21-32)
[2025-05-25 13:45] LABS: BASOPHILS ABSOLUTE AUTO 0.03 K/mm3 (0.00-0.23); BASOPHILS PERCENT AUTO 1 % (0-2); EOSINOPHILS ABSOLUTE AUTO 0.04 K/mm3 (0.00-0.68); EOSINOPHILS PERCENT AUTO 1 % (0-6); Hematocrit 48.3 % (37.0-53.0); Hemoglobin 16.5 g/dL (13.5-17.5); IMMATURE GRAN ABSOLUTE AUTO 0.02 K/mm3 (0.00-0.10); IMMATURE GRAN PERCENT AUTO 0 % (0-1); LYMPHOCYTES ABSOLUTE AUTO 0.76 K/mm3 (0.84-5.20); LYMPHOCYTES PERCENT AUTO 13 % (21-46); MONOCYTES ABSOLUTE AUTO 1.03 K/mm3 (0.16-1.47); MONOCYTES PERCENT AUTO 18 % (4-13); Mean Corpuscular HGB Conc 34.2 g/dL (31.5-36.5); Mean Corpuscular Volume 94 fL (80-100); NEUTROPHILS ABSOLUTE AUTO 3.99 K/mm3 (1.96-9.15); NEUTROPHILS PERCENT AUTO 68 % (41-73); NRBC ABSOLUTE 0.00 K/mm3 (0.00-0.02); NRBC Auto 0.0 /100 WBC (0.0-0.2); Platelet Count 225 K/mm3 (150-400); RDW Coefficient Variation 13.4 % (11.7-14.2); RDW Standard Deviation 46.3 fL (35.1-46.3)
[2025-05-25 14:34] LABS: Alanine Aminotransfer (ALT/SGP 66.0 U/L (12-78); Albumin, Blood 3.4 g/dL (3.4-5.0); Albumin/Globulin Ratio 0.9 (0.8-1.8); Anion Gap 10.0 mmol/L (3-11); Aspartate Aminotrans (AST/SGOT 50.0 U/L (12-37); Bilirubin, Total 0.6 mg/dL (0.1-1.0); Blood Urea Nitrogen 14.0 mg/dL (8-24); CO2, Blood 24.0 mmol/L (21-32); Calcium, Blood 8.4 mg/dL (8.5-10.1); Chloride, Blood 106.0 mmol/L (98-108); Creatinine, Blood 1.15 mg/dL (0.60-1.20); Globulin, Blood 3.6 g/dL (2.2-4.0); Glucose, Blood 109.0 mg/dL (70-99); Potassium, Blood 3.5 mmol/L (3.5-5.5); Sodium, Blood 136.0 mmol/L (136-145); Total Protein, Blood 7.0 g/dL (6.4-8.2)
[2025-05-25 14:44] LABS: pH Blood Venous 7.33 (7.34-7.37)
[2025-05-25 15:32] LABS: Influenza A, PCR NEGATIVE (NEGATIVE); Influenza B, PCR NEGATIVE (NEGATIVE); Resp Syncytial Virus, PCR NEGATIVE (NEGATIVE)
[2025-05-25 15:33] LABS: SARS-Cov-2 (COVID-19) PCR, MMC POSITIVE (NEGATIVE)
== END 2025-05-25 17:45 | disposition home or self-care (01) ==
LOC: ER 12:11
PROVIDERS: Student in an Organized Health Care Education/Training Program
DX: U07.1 COVID-19 (principal); Z88.8 Allergy status to other drugs, medicaments and biological substances; Z79.01 Long term (current) use of anticoagulants; Z79.899 Other long term (current) drug therapy; E78.5 Hyperlipidemia, unspecified; K21.9 Gastro-esophageal reflux disease without esophagitis
CPT/HCPCS: 71046; 80047; 80053; 82375; 82803; 85014; 85025; 87637; 93005; 93010; 99284-25